=== PATIENT | female | born 1940 | race Caucasian/White ===

== ENCOUNTER 2023-01-13 13:34 | Inpatient (IN) | payer MEDICARE, MEDICAID, SELFPAY ==
[2023-01-13] VITALS (18 sets, daily range): BP systolic 97–155; BP diastolic 64–108; PULSE 52–74; RESP 12–20; TEMP 36.3–36.7; O2SAT 91–97; BMI 31.0; BMI 39.4
--- NOTE | 2023-01-13 13:35 | XR_ITS ---
The [address] [address] Patient Name: JASWINDER COOPER MRN: [id number] date: 1940 Sex: F Assigned Patient Location: ER Current Patient Location: ED.MAIN Accession/Order Number: [id number] Exam Date: 01/13/2023 14:01 Report Date: 01/13/2023 14:20 At the request of: EVERETT CHISHOLM Procedure: XR chest 1V EXAMINATION: XR chest 1V HISTORY: confusion COMPARISON: 10/02/2022 TECHNIQUE: AP erect FINDINGS: LUNGS: Mild right basilar infiltrate partially obscuring the hemidiaphragm. The left lung is clear VASCULATURE: No increased pulmonary vasculature. PLEURA: No pneumothorax. Small right pleural effusion CARDIAC: No cardiomegaly or cardiac silhouette abnormality. MEDIASTINUM: No visible mass or adenopathy. Retrocardiac opacity, a hiatal artery is favored BONES: No fracture or visible bone lesion. OTHER: Negative. XR/XR chest 1V IMPRESSION: Mild right basilar infiltrate and small pleural effusion Electronically authenticated by: NAV CAMACHO Date: 01/13/2023 14:20
--- NOTE | 2023-01-13 13:36 | ECG_ITS ---
The [facility] Test Date: 2023-01-13 Pat Name: JASWINDER COOPER Department: Room: - Gender: Female Ela Teacher: : 1940 Requested By: GABRIELE SOTELO Order Number: [id number] Reading MD: GABRIELE SOTELO Measurements Intervals [place] Rate: 61 P: 90 VT: 246 QRS: -48 QRSD: 114 T: 66 QT: 426 QTc: 430 Interpretive Statements 1100 Sinus rhythm 2231 First degree AV block 2440 Incomplete right bundle branch block 2630 Left anterior fascicular block 3113 Cannot rule out anterior myocardial infarction, probably old 9150 abnormal ECG No previous ECG available for comparison Electronically Signed On 01-15-2023 6:36:45 EDT by GABRIELE SOTELO
--- NOTE | 2023-01-13 13:38 | CT_ITS ---
[address] [address] Patient Name: JASWINDER COOPER MRN: [id number] date: 1940 Sex: F Assigned Patient Location: ER Current Patient Location: ED.MAIN Accession/Order Number: [id number] Exam Date: 01/13/2023 13:30 Report Date: 01/13/2023 14:07 At the request of: EVERETT CHISHOLM Procedure: CT stroke head/brain wo con EXAMINATION: CT stroke head/brain wo con REASON FOR EXAM: confusion COMPARISON: No comparison. FINDINGS: Moderate cerebral atrophy. No intracranial hemorrhage, mass or cortical edema. There is atherosclerotic calcification of the vertebrobasilar system and the paraclinoid internal carotid arteries. There are air-fluid levels in the maxillary sinuses and mucosal thickening throughout the ethmoid air cells and sphenoid air cells suggesting sinusitis. No fluid middle ear cavities or mastoids. No skull fracture. CT/CT stroke head/brain wo con IMPRESSION: 1. There is cerebral atrophy but no intracranial hemorrhage or mass. 2. Sinusitis with air-fluid levels in the maxillary sinuses. Electronically authenticated by: DANN ALBRECHT Date: 01/13/2023 14:07
--- NOTE | 2023-01-13 13:43 | ED_ITS ---
HPI - Altered Mental Status General Chief Complaint: Altered Mental Status Stated Complaint: general weakness Time Seen by Provider: 01/13/23 13:35 History of Present Illness HPI narrative: patient is an 82-year-old female who presents to the emergency department from the [facility] where she is currently residing for the evaluation of confusion today associated with low blood pressure. On arrival to the Emergency Room, patient states she has had some pain in her low back for several months but has no new focal medical complaints today. Her assist with the history states that several months ago the patient was up at [facility] and on a ventilator and has been having issues with her low back since that time. She denies any pain at rest or when she is lying down. She denies chest pain, shortness of breath. [facility] report stated that the patient had a blood p ressure of 80/40 this morning, EMS reports a normal blood pressure. She has not had any falls or injuries. [facility] report states that they contacted Dr. Villa who was going to adjust the patient's blood pressure medication but when nursing asked for lab studies and Dr. Villa requested the patient come to the emergency department. Related Data Home Medications Medication Instructions Recorded Confirmed amiodarone 200 mg tablet 200 mg PO Q24H 01/13/23 01/13/23 apixaban 5 mg tablet (Eliquis) 5 mg PO Q12H 01/13/23 01/13/23 aripiprazole 2 mg tablet 1 mg PO DAILY 01/13/23 01/13/23 citalopram 20 mg tablet 20 mg PO DAILY 01/13/23 01/13/23 famotidine 20 mg tablet 20 mg PO DAILY 01/13/23 01/13/23 insulin lispro 100 unit/mL 1 sliding scale dose subcut 01/13/23 01/13/23 subcutaneous pen ([facility]-100 Insulin lispro) losartan 50 mg tablet 50 mg PO DAILY 01/13/23 01/13/23 metoprolol tartrate 25 mg tablet 25 mg PO Q12H 01/13/23 01/13/23 potassium, sodium phosphates 280 1 packet PO BID 01/13/23 01/13/23 mg-160 mg-250 mg oral powder packet (Phosphorous Supplement) silodosin 4 mg capsule 4 mg PO DAILY 01/13/23 01/13/23 sodium chloride 234 mg/mL (4 1,000 mg PO TID 01/13/23 01/13/23 mEq/mL) oral solution Allergies Allergy/AdvReac Type Severity Reaction Status Date / Time amoxicillin Allergy Intermediate Verified 01/13/23 14:08 azithromycin Allergy Intermediate Verified 01/13/23 14:09 betamethasone Allergy Intermediate Verified 01/13/23 14:08 codeine Allergy Intermediate Verified 01/13/23 14:08 Corticosteroids Allergy Intermediate Verified 01/13/23 14:08 (Glucocorticoids) Iodinated Contrast Media Allergy Intermediate Verified 01/13/23 14:08 metformin [From Glucophage] Allergy Intermediate Verified 01/13/23 14:08 Penicillins Allergy Intermediate Verified 01/13/23 14:08 pioglitazone [From Actos] Allergy Intermediate Verified 01/13/23 14:08 simvastatin [From Zocor] Allergy Intermediate Verified 01/13/23 14:08 temazepam [From Restoril] Allergy Intermediate Verified 01/13/23 14:08 Review of Systems ROS Constitutional Denies: fever or chills Ears, nose, mouth, and throat Denies: throat pain or neck pain Respiratory Denies: shortness of breath or cough Gastrointestinal Denies: nausea or vomiting Genitourinary Denies: painful urination Musculoskeletal Reports: back pain; Denies: neck pain Integumentary/Breast Denies: rash Neurological Denies: headache Endocrine Denies: excessive urination Hematologic/Lymphatic Reports: [facility] Social History Smoking status: Former smoker Exam Narrative Exam Narrative: Gen.: Awake, alert, in no distress Head: Normocephalic, atraumatic ENT: Moist mucous membranes Respiratory: No respiratory distress, lungs clear bilaterally Cardio: Regular rate and rhythm Gastrointestinal: Abdomen is soft, nondistended and nontender to palpation Extremities: Moves extremities equally, no injuries noted Psych: clear speech, alert and oriented to person, place, contacts, month. Disoriented to year Neuro: No focal neuro deficit Skin: Warm, dry, intact Constitutional Vital Signs, click to edit/add: Last Vital Signs Temp 98.1 F 01/13/23 13:53 Pulse 61 01/13/23 15:30 Resp 12 01/13/23 15:30 BP 128/84 H 01/13/23 15:30 Pulse Ox 95 01/13/23 15:30 O2 Del Method Room Air 01/13/23 14:01 Course Vital Signs Vital signs: Vital Signs Pulse Rate 62 01/13/23 13:45 Respiratory Rate 18 01/13/23 13:45 Pulse Oximetry 95 01/13/23 13:45 Temperature 98.1 F 01/13/23 13:53 Pulse Rate 61 01/13/23 15:30 Respiratory Rate 12 01/13/23 15:30 Blood Pressure 128/84 H 01/13/23 15:30 Pulse Oximetry 95 01/13/23 15:30 Oxygen Delivery Method Room Air 01/13/23 14:01 MDM - Altered Mental Status MDM Narrative Medical decision making narrative: patient treated with IV fluids, she maintains normal vital signs in the Emergen cy Room. patient was immediately sent for a stroke head CT because of her confusion, this is unremarkable, chest x-ray shows right lower lobe infiltraate and the patient was treated with IV Levaquin. Her thyroid-stimulating hormone was noted to be abnormal and additional thyroid studies were ordered for her. She did not require anything for pain in the Emergency Room. She is noted to have acute kidney injury with an elevated creatinine compared to previous. She will be admitted for IV fluids, treatment of pneumonia due to confusion and hypotension earlier today. Stable at time of admission to Dr. Villa. Medical Records Attestation: I reviewed the patient's medical records. Lab Data Attestation: I reviewed the patient's lab results. Labs: Lab Results 01/13/23 01/13/23 Range/Units 13:49 13:54 WBC 9.4 (4.0-11.0) 10^3/uL RBC 2.76 L (4.20-5.40) 10^6/uL Hgb 9.7 L (12.0-16.0) g/dL Hct 28.8 L (36.0-48.0) % MCV 104.3 H (81.0-99.0) fL MCH 35.1 H (26.7-34.0) pg MCHC 33.7 (29.9-35.2) g/dL RDW 17.2 H (11.0-15.0) % Plt Count 149 L (150-450) 10^3/uL MPV 9.0 L (9.5-13.5) fL Seg Neuts % (Manual) 21.0 Lymphocytes % (Manual) 70.0 H (20.5-60.0) % Atypical Lymphs % (Man) 7.0 % Monocytes % (Manual) 2.0 (1.7-12.0) % Eosinophils % (Manual) 0.0 L (0.9-7.0) % Basophils % (Manual) 0.0 L (0.2-2.0) % Neutrophils # (Manual) 1.97 (1.4-6.5) 10^3/uL Lymphocytes # (Manual) 6.58 H (1.20-3.80) 10^3/uL Monocytes # (Manual) 0.18 L (0.30-0.80) 10^3/uL Eosinophils # (Manual) 0.00 (0.00-0.70) 10^3/uL Basophils # (Manual) 0.00 (0.00-0.10) 10^3/uL Anisocytosis 2+ PT 10.9 (9.0-11.6) sec INR 1.03 Sodium 134 L (136-145) mmol/L Potassium 4.2 (3.5-5.1) mmol/L Chloride 99 (98-107) mmol/L Carbon Dioxide 25.7 (21.0-32.0) mmol/L Anion Gap 13.5 BUN 33.0 H (7.0-18.0) mg/dL Creatinine 2.01 H (0.55-1.02) mg/dL Est GFR ( Amer) 29 L (>=60) Est GFR (Non-Af Amer) 24 L (>=60) BUN/Creatinine Ratio 16.4 Glucose 123 H (74-106) mg/dL Lactate 1.3 (0.4-2.0) mmol/L Calcium 8.5 (8.5-10.1) mg/dL Total Bilirubin 0.4 (0.2-1.0) mg/dL AST 38 H (15-37) U/L ALT 32 (14-59) U/L Alkaline Phosphatase 64 (46-116) U/L Troponin I High Sens 11.9 (4.0-51.3) pg/mL Total Protein 6.6 (6.4-8.2) g/dL Albumin 3.4 (3.4-5.0) g/dL Globulin 3.2 g/dL Albumin/Globulin Ratio 1.1 TSH 98.540 H (0.358-3.740) uIU/mL POC Glucose 124 H (74-106) mg/dL Imaging Data Chest x-ray: Attestation: I have reviewed the pertinent imaging results. Radiologist's impression: Procedure: XR chest 1V EXAMINATION: XR chest 1V HISTORY: confusion COMPARISON: 10/02/2022 TECHNIQUE: AP erect FINDINGS: LUNGS: Mild right basilar infiltrate partially obscuring the hemidiaphragm. The left lung is clear VASCULATURE: No increased pulmonary vasculature. PLEURA: No pneumothorax. Small right pleural effusion CARDIAC: No cardiomegaly or cardiac silhouette abnormality. MEDIASTINUM: No visible mass or adenopathy. Retrocardiac opacity, a hiatal artery is favored BONES: No fracture or visible bone lesion. OTHER: Negative. IMPRESSION: Mild right basilar infiltrate and small pleural effusion Electronically authenticated by: NAV CAMACHO Date: 01/13/2023 14:20 CT scan - head: Attestation: I have reviewed the pertinent imaging results. Radiologist's impression: Procedure: CT stroke head/brain wo con EXAMINATION: CT stroke head/brain wo con REASON FOR EXAM: confusion COMPARISON: No comparison. FINDINGS: Moderate cerebral atrophy. No intracranial hemorrhage, mass or cortical edema. There is atherosclerotic calcification of the vertebrobasilar system and the paraclinoid internal carotid arteries. There are air-fluid levels in the maxillary sinuses and mucosal thickening throughout the ethmoid air cells and sphenoid air cells suggesting sinusitis. No fluid middle ear cavities or mastoids. No skull fracture. IMPRESSION: 1. There is cerebral atrophy but no intracranial hemorrhage or mass. 2. Sinusitis with air-fluid levels in the maxillary sinuses. Electronically authenticated by: DANN ALBRECHT Date: 01/13/2023 14:07 ECG Data Attestation: I personally reviewed and interpreted this ECG as follows: (normal sinus rhythm at a rate of sixty-one, first-degree AV block with no acute ST elevation or ectopy. EKG reviewed by attending physician) ECG interpretation date: 01/13/23 ECG interpretation time: 13:54 Discharge Plan Discharge Chief Complaint: Altered Mental Status Clinical Impression: Acute kidney injury, Acute hypotension, Elevated TSH, Altered mental status, Right lower lobe pneumonia Patient Disposition: Admitted as Observation Time of Disposition Decision: 15:37 Condition: Good
[2023-01-13 13:51] LABS: Glucometer 124 mg/dL (74-106)
[2023-01-13 14:11] LABS: Hematocrit 28.8 % (36.0-48.0); Hemoglobin 9.7 g/dL (12.0-16.0); Mean Corpuscular HGB Conc 33.7 g/dL (29.9-35.2); Mean Corpuscular Hemoglobin 35.1 pg (26.7-34.0); Mean Corpuscular Volume 104.3 fL (81.0-99.0); Platelet Count 149 10^3/uL (150-450); Red Blood Count 2.76 10^6/uL (4.20-5.40); Red Cell Distribution Width 17.2 % (11.0-15.0); White Blood Count 9.4 10^3/uL (4.0-11.0)
[2023-01-13 14:28] LABS: Lymphocytes Absolute Manual 6.58 10^3/uL (1.20-3.80); Monocytes Absolute Manual 0.18 10^3/uL (0.30-0.80); Segmented Neut Absolute Manual 1.97 10^3/uL (1.4-6.5)
[2023-01-13 14:29] LABS: Anisocytosis 2+; INR 1.03; Prothrombin Time 10.9 sec (9.0-11.6)
[2023-01-13 14:32] LABS: Lactate/Lactic Acid 1.3 mmol/L (0.4-2.0)
[2023-01-13] MEDS: 0.9 % SODIUM CHLORIDE 1,000 ML 1000 ML IV (14:37)
[2023-01-13 14:39] LABS: Alanine Aminotransferase 32 U/L (14-59); Albumin Globulin Ratio 1.1; Albumin Level 3.4 g/dL (3.4-5.0); Alkaline Phosphatase 64 U/L (46-116); Anion Gap 13.5; Aspartate Amino Transferase 38 U/L (15-37); BUN Creatinine Ratio 16.4; Bilirubin Total 0.4 mg/dL (0.2-1.0); Calcium 8.5 mg/dL (8.5-10.1); Carbon Dioxide 25.7 mmol/L (21.0-32.0); Chloride 99 mmol/L (98-107); Estimated GFR (African America 29 (>=60); Estimated GFR (Non-African Ame 24 (>=60); Globulin 3.2 g/dL; Glucose 123 mg/dL (74-106); Potassium 4.2 mmol/L (3.5-5.1); Sodium 134 mmol/L (136-145); Total Protein 6.6 g/dL (6.4-8.2); Troponin I High Sensitivity 11.9 pg/mL (4.0-51.3)
[2023-01-13] MEDS: LEVOFLOXACIN IN DEXTROSE 5 % 750 MG/150 ML IV.SOLN 100 MG IV (15:37)
[2023-01-13 15:57] LABS: Free T4 0.14 ng/dL (0.76-1.46)
[2023-01-13 16:03] LABS: Free T3 <0.50 pg/mL (2.18-3.98)
--- NOTE | 2023-01-13 16:21 | SWNOTE1 ---
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
[2023-01-13 17:14] LABS: Glucometer 89 mg/dL (74-106)
[2023-01-13 18:04] LABS: Bilirubin Urine NEGATIVE (NEGATIVE); Blood Urine SMALL (NEGATIVE); Clarity Urine CLEAR (CLEAR); Color Urine LT. YELLOW (YELLOW); Glucose Urine UA NEGATIVE (NEGATIVE); Ketones Urine NEGATIVE (NEGATIVE); Leukocyte Esterase Urine SMALL (NEGATIVE); Nitrite Urine NEGATIVE (NEGATIVE); Protein Urine NEGATIVE (NEG/TRACE); Urobilinogen Urine 0.2 EU/dL (0.2-1.0)
[2023-01-13 18:07] LABS: Urine Microscopic Indicated YES
[2023-01-13 18:10] LABS: Bacteria Urine TRACE #/HPF (NONE SEEN); Mucus Urine NONE SEEN (NONE SEEN); Squamous Epithelial Cell Urine NONE SEEN #/LPF (NONE/RARE)
[2023-01-13 18:11] LABS: Cast Seen? NONE SEEN #/LPF (NONE SEEN); Crystals Seen? None Seen #/HPF (None Seen); Urine Culture Indicated YES
[2023-01-13 20:13] LABS: Glucometer 127 mg/dL (74-106)
[2023-01-13] MEDS: APIXABAN 5 MG TABLET PO (20:56)
[2023-01-13] MEDS: METOPROLOL TARTRATE 25 MG TABLET PO (20:56)
[2023-01-13] MEDS: LACTATED RINGER'S SOLUTION 1,000 ML 100 ML IV (21:16)
[2023-01-13] MEDS: SODIUM CHLORIDE 1,000 MG TABLET 1000 MG PO (21:18)
[2023-01-14] VITALS (18 sets, daily range): BP systolic 117–138; BP diastolic 67–75; PULSE 49–67; RESP 16–18; TEMP 36.7–37; O2SAT 90–95
[2023-01-14 05:20] LABS: Hematocrit 27.2 % (36.0-48.0); Hemoglobin 9.1 g/dL (12.0-16.0); Mean Corpuscular HGB Conc 33.5 g/dL (29.9-35.2); Mean Corpuscular Hemoglobin 34.7 pg (26.7-34.0); Mean Corpuscular Volume 103.8 fL (81.0-99.0); Mean Platelet Volume 9.3 fL (9.5-13.5); Platelet Count 136 10^3/uL (150-450); Red Blood Count 2.62 10^6/uL (4.20-5.40); Red Cell Distribution Width 16.9 % (11.0-15.0); White Blood Count 9.2 10^3/uL (4.0-11.0)
[2023-01-14 05:38] LABS: Alanine Aminotransferase 30 U/L (14-59); Albumin Level 2.9 g/dL (3.4-5.0); Alkaline Phosphatase 54 U/L (46-116); Anion Gap 11.3; Aspartate Amino Transferase 29 U/L (15-37); BUN Creatinine Ratio 15.2; Bilirubin Total 0.4 mg/dL (0.2-1.0); Calcium 8.2 mg/dL (8.5-10.1); Carbon Dioxide 26.6 mmol/L (21.0-32.0); Chloride 100 mmol/L (98-107); Estimated GFR (African America 36 (>=60); Estimated GFR (Non-African Ame 30 (>=60); Glucose 107 mg/dL (74-106); Potassium 3.9 mmol/L (3.5-5.1); Sodium 134 mmol/L (136-145); Total Protein 5.9 g/dL (6.4-8.2)
[2023-01-14] MEDS: SODIUM CHLORIDE 1,000 MG TABLET 1000 MG PO ×3 (05:50→21:27)
[2023-01-14 06:13] LABS: Hypochromasia 3+; Lymphocytes Absolute Manual 7.45 10^3/uL (1.20-3.80); Segmented Neut Absolute Manual 1.74 10^3/uL (1.4-6.5)
[2023-01-14] MEDS: LACTATED RINGER'S SOLUTION 1,000 ML 100 ML IV ×2 (06:50→18:54)
--- NOTE | 2023-01-14 08:19 | P.HP_ITS ---
H&P: HPI History of Present Illness Chief complaint: general weakness ACUTE KIDNEY INJURY R LOWER LOBE Narrative: I received a call from the skilled nursing, patient with change in mental status, not as alert, referred out to the emergency room. Found to have acute altered mental status secondary to acute UTI-patient with a history of sepsis. She will be admitted for IV antibiotics and continued work-up. Review of Systems ROS Constitutional Denies: fever or chills Eyes Denies: change in vision Ears, nose, mouth, and throat Denies: throat pain Cardiovascular Denies: chest pain or palpitations Respiratory Denies: shortness of breath Gastrointestinal Denies: abdominal pain PFSH PFSH Social History Smoking status: Former smoker Meds Home Medications and Allergies Home Medications Medication Instructions Recorded Confirmed Type amiodarone 200 mg tablet 200 mg PO Q24H 01/13/23 01/13/23 History apixaban 5 mg tablet (Eliquis) 5 mg PO Q12H 01/13/23 01/13/23 History aripiprazole 2 mg tablet 1 mg PO DAILY 01/13/23 01/13/23 History citalopram 20 mg tablet 20 mg PO DAILY 01/13/23 01/13/23 History famotidine 20 mg tablet 20 mg PO DAILY 01/13/23 01/13/23 History insulin lispro 100 unit/mL 1 sliding scale dose subcut 01/13/23 01/13/23 History subcutaneous pen ([facility]-100 Insulin lispro) losartan 50 mg tablet 50 mg PO DAILY 01/13/23 01/13/23 History metoprolol tartrate 25 mg tablet 25 mg PO Q12H 01/13/23 01/13/23 History potassium, sodium phosphates 280 1 packet PO BID 01/13/23 01/13/23 History mg-160 mg-250 mg oral powder packet (Phosphorous Supplement) silodosin 4 mg capsule 4 mg PO DAILY 01/13/23 01/13/23 History sodium chloride 234 mg/mL (4 1,000 mg PO TID 01/13/23 01/13/23 History mEq/mL) oral solution Allergies Allergy/AdvReac Type Severity Reaction Status Date / Time amoxicillin Allergy Intermediate Verified 01/13/23 14:08 azithromycin Allergy Intermediate Verified 01/13/23 14:09 betamethasone Allergy Intermediate Verified 01/13/23 14:08 codeine Allergy Intermediate Verified 01/13/23 14:08 Corticosteroids Allergy Intermediate Verified 01/13/23 14:08 (Glucocorticoids) Iodinated Contrast Media Allergy Intermediate Verified 01/13/23 14:08 metformin [From Glucophage] Allergy Intermediate Verified 01/13/23 14:08 Penicillins Allergy Intermediate Verified 01/13/23 14:08 pioglitazone [From Actos] Allergy Intermediate Verified 01/13/23 14:08 simvastatin [From Zocor] Allergy Intermediate Verified 01/13/23 14:08 temazepam [From Restoril] Allergy Intermediate Verified 01/13/23 14:08 Exam Constitutional Vital Signs, click to edit/add: Last Vital Signs Temp 98.1 F 01/14/23 05:54 Pulse 61 01/14/23 07:50 Resp 18 01/14/23 05:54 BP 125/70 H 01/14/23 05:54 Pulse Ox 92 L 01/14/23 05:54 O2 Del Method Room Air 01/14/23 05:54 Documenting provider has reviewed patient's vital signs: yes Exam limitations: altered mental status and behavioral limitations HENMT Common normals: normocephalic Chest Common normals: inspection of chest normal Respiratory Common normals: normal respiratory effort, no retractions and clear to auscultation bilaterally Cardio Common normals: regular rate, regular rhythm and no murmurs GI Common normals: Normal to inspection, nondistended, normoactive bowel sounds present, soft to palpation, non-tender and no masses Psych Common normals: negative for mental status grossly normal and negative for thought process normal Attitude: agitated Results Labs Labs: Short CBC 01/13/23 01/14/23 Range/Units 13:54 05:00 WBC 9.4 9.2 (4.0-11.0) 10^3/uL Hgb 9.7 L 9.1 L (12.0-16.0) g/dL Hct 28.8 L 27.2 L (36.0-48.0) % Plt Count 149 L 136 L (150-450) 10^3/uL BMP 01/13/23 01/14/23 13:54 05:00 Sodium 134 L 134 L Potassium 4.2 3.9 Chloride 99 100 Carbon Dioxide 25.7 26.6 BUN 33.0 H 25.0 H Creatinine 2.01 H 1.64 H Glucose 123 H 107 H Calcium 8.5 8.2 L Liver Function 01/13/23 01/14/23 Range/Units 13:54 05:00 Total Bilirubin 0.4 0.4 (0.2-1.0) mg/dL AST 38 H 29 (15-37) U/L ALT 32 30 (14-59) U/L Alkaline Phosphatase 64 54 (46-116) U/L Albumin 3.4 2.9 L (3.4-5.0) g/dL Urine 01/13/23 Range/Units 17:35 Urine Color Lt. yellow (YELLOW) Urine Clarity Clear (CLEAR) Urine pH 6.0 (5.0-9.0) Ur Specific [place] 1.020 (1.005-1.025) Urine Protein Negative (NEG/TRACE) mg/dL Urine Glucose (UA) Negative (NEGATIVE) mg/dL Assessment and Plan Assessment and Plan (1) Acute kidney injury: (2) Acute hypotension: (3) Elevated TSH: (4) Right lower lobe pneumonia: (5) Altered mental status: (6) Acute UTI: Plan Acute altered mental status, increasing weakness, thrombocytopenia, acute kidney injury secondary to acute UTI. IV antibiotics. Blood cultures and urine cultures are pending. He did maintain IV fluids for at least 1 additional day. Her BUN and creatinine are not back to her baseline of around 1. Is improved from her admission creatinine of 2. Severe hypothyroidism-this is complicating the above. Give 1 dose of IV thyroid today. In the start p.o.Synthroid tomorrow start Cytomel orally today. T3 and T4 are both severely low. Iron deficiency anemia-monitor daily. We will check occult blood as well. 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 Hypertension-continue with the medications, adjust as necessary Unable to improve over the first 24 hours. Her creatinine is still elevated from her baseline. She still has persistent altered mental status.Will need to be changed to inpatient status for continued medical therapyNext 24 to 48 hours.
[2023-01-14] MEDS: LIOTHYRONINE SODIUM 5 MCG TABLET 10 MCG PO (10:27)
[2023-01-14] MEDS: APIXABAN 5 MG TABLET PO ×2 (10:28→21:27)
[2023-01-14] MEDS: LOSARTAN POTASSIUM 50 MG TABLET PO (10:28)
[2023-01-14] MEDS: METOPROLOL TARTRATE 25 MG TABLET PO ×2 (10:29→21:27)
[2023-01-14] MEDS: FAMOTIDINE 20 MG TABLET PO (10:29)
[2023-01-14] MEDS: PANTOPRAZOLE SODIUM 40 MG VIAL IV (10:30)
[2023-01-14] MEDS: AMIODARONE HCL 200 MG TABLET PO (10:33)
[2023-01-14] MEDS: ESCITALOPRAM 10 MG TABLET PO (10:34)
[2023-01-14] MEDS: LEVOTHYROXINE SODIUM 100 MCG VIAL IVP (11:04)
[2023-01-14 11:14] LABS: Glucometer 141 mg/dL (74-106)
--- NOTE | 2023-01-14 14:51 | CM.NOTE ---
Important Message From Medicare discussed with pt, pt verbalizes understanding and signs paper. Origianl given to pt and copy placed on pt's chart.
[2023-01-14 16:23] LABS: Glucometer 157 mg/dL (74-106)
--- NOTE | 2023-01-14 16:29 | SWNOTE1 ---
SW attempted to see pt, but she was sleeping. SW to assess tomorrow.
[2023-01-14] MEDS: INSULIN ASPART 300 UNIT/3 ML PEN SUBQ (17:56)
[2023-01-14 19:45] LABS: Glucometer 103 mg/dL (74-106)
[2023-01-15] VITALS (8 sets, daily range): BP systolic 136; BP diastolic 74; PULSE 50–60; RESP 16; TEMP 36.1; O2SAT 92–96
[2023-01-15] MEDS: LACTATED RINGER'S SOLUTION 1,000 ML 100 ML IV (04:06)
[2023-01-15 04:46] LABS: Basophils Percent Auto 0.2 % (0.2-2.0); Eosinophils Percent Auto 0.3 % (0.9-7.0); Hemoglobin 9.2 g/dL (12.0-16.0); Immature Granulocytes Abs Auto 0.01 10^3/uL (0.00-0.03); Immature Granulocytes Pct Auto 0.1 % (0.0-0.5); Lymphocytes Absolute Auto 7.2 10^3/uL (1.2-3.8); Lymphocytes Percent Auto 80.7 % (20.5-60.0); Mean Corpuscular HGB Conc 34.1 g/dL (29.9-35.2); Mean Corpuscular Hemoglobin 35.4 pg (26.7-34.0); Mean Corpuscular Volume 103.8 fL (81.0-99.0); Mean Platelet Volume 9.2 fL (9.5-13.5); Monocytes Absolute Auto 0.6 10^3/uL (0.3-0.8); Monocytes Percent Auto 6.1 % (1.7-12.0); Neutrophils Absolute Auto 1.1 10^3/uL (1.4-6.5); Neutrophils Percent Auto 12.6 % (43.0-75.0); Platelet Count 133 10^3/uL (150-450); Red Cell Distribution Width 16.6 % (11.0-15.0)
[2023-01-15] MEDS: SODIUM CHLORIDE 1,000 MG TABLET 1000 MG PO (05:12)
[2023-01-15 05:38] LABS: Alanine Aminotransferase 26 U/L (14-59); Albumin Globulin Ratio 1.2; Albumin Level 2.9 g/dL (3.4-5.0); Alkaline Phosphatase 55 U/L (46-116); Anion Gap 8.8; Aspartate Amino Transferase 33 U/L (15-37); BUN Creatinine Ratio 12.8; Bilirubin Total 0.4 mg/dL (0.2-1.0); Calcium 8.2 mg/dL (8.5-10.1); Chloride 99 mmol/L (98-107); Estimated GFR (African America 41 (>=60); Estimated GFR (Non-African Ame 34 (>=60); Globulin 2.4 g/dL; Glucose 93 mg/dL (74-106); Potassium 3.8 mmol/L (3.5-5.1); Sodium 132 mmol/L (136-145); Total Protein 5.3 g/dL (6.4-8.2)
[2023-01-15 07:51] LABS: Glucometer 135 mg/dL (74-106)
--- NOTE | 2023-01-15 08:12 | P.DS_ITS ---
DS: Providers Provider Date of admission: 01/14/23 08:49 Primary care physician: James Villa MD Consults: 01/13/23 18:57 Occupational Therapy Eval and Treat Routine Physical Therapy Eval and Treat Routine 01/14/23 08:15 Consult to Clinical Application Specialist Routine Reason for consult:: longterm DS: Diagnosis Discharge Diagnosis (1) Acute kidney injury: (2) Acute hypotension: (3) Elevated TSH: (4) Right lower lobe pneumonia: (5) Altered mental status: (6) Acute UTI: Plan Acute altered mental status, increasing weakness, thrombocytopenia, acute kidney injury secondary to acute UTI.? Severe hypothyroidism-this is complicating the above.? Iron deficiency anemia- Mild depression- Coronary artery disease- Hypertension DS: Summary Hospital Course Hospital Course: Patient was seen and evaluated in the emergency room after recommendation from me to have her transferred from the assisted to the ER for the evaluation. In ER found to have acute UTI with altered mental status. Patient was admitted, placed on IV fluids and IV antibiotics. No significant improvement the following day. Still with altered mental status. Continue to medical evaluation and therapies from yesterday to today. Patient is much better today. She is more alert. Oriented. At this point she feels like she wants to go back to the assisted. Discussed with family. Medications see list. I will follow patient in assisted Status at Discharge Functional status at discharge: wheelchair bound Overall status at discharge: patient is back to baseline Time Spent with Patient Time attestation: Total time spent providing and/or coordinating discharge services: Quality: Stroke Symptom Onset Unknown: No Exam Constitutional Vital Signs, click to edit/add: Last Vital Signs Temp 97.0 F L 01/15/23 04:11 Pulse 59 L 01/15/23 08:05 Resp 16 01/15/23 04:11 BP 136/74 H 01/15/23 04:11 Pulse Ox 96 01/15/23 04:11 O2 Del Method Room Air 01/15/23 04:11 Documenting provider has reviewed patient's vital signs: yes Common normals: no apparent distress Chest Common normals: inspection of chest normal Respiratory Common normals: normal respiratory effort, no retractions and clear to auscultation bilaterally Cardio Common normals: regular rate, regular rhythm and no murmurs GI Common normals: Normal to inspection, nondistended, normoactive bowel sounds present and non-tender DS: Data Data Completed and Pending Labs on day of discharge: Labs from last 24 hours 01/15/23 01/15/23 01/14/23 07:50 04:30 19:43 WBC 9.0 RBC 2.60 L Hgb 9.2 L Hct 27.0 L MCV 103.8 H MCH 35.4 H MCHC 34.1 RDW 16.6 H Plt Count 133 L MPV 9.2 L Neut % (Auto) 12.6 L Lymph % (Auto) 80.7 H [place] % (Auto) 6.1 Eos % (Auto) 0.3 L Baso % (Auto) 0.2 Neut # (Auto) 1.1 L Lymph # (Auto) 7.2 H [place] # (Auto) 0.6 Eos # (Auto) 0.0 Baso # (Auto) 0.0 Abs Immat Gran (auto) 0.01 Imm/Tot Granulo (auto) 0.1 Sodium 132 L Potassium 3.8 Chloride 99 Carbon Dioxide 28.0 Anion Gap 8.8 BUN 19.0 H Creatinine 1.48 H Est GFR ( Amer) 41 L Est GFR (Non-Af Amer) 34 L BUN/Creatinine Ratio 12.8 Glucose 93 Calcium 8.2 L Total Bilirubin 0.4 AST 33 ALT 26 Alkaline Phosphatase 55 Total Protein 5.3 L Albumin 2.9 L Globulin 2.4 Albumin/Globulin Ratio 1.2 POC Glucose 135 H 103 01/14/23 01/14/23 16:22 11:13 WBC RBC Hgb Hct MCV MCH MCHC RDW Plt Count MPV Neut % (Auto) Lymph % (Auto) [place] % (Auto) Eos % (Auto) Baso % (Auto) Neut # (Auto) Lymph # (Auto) [place] # (Auto) Eos # (Auto) Baso # (Auto) Abs Immat Gran (auto) Imm/Tot Granulo (auto) Sodium Potassium Chloride Carbon Dioxide Anion Gap BUN Creatinine Est GFR ( Amer) Est GFR (Non-Af Amer) BUN/Creatinine Ratio Glucose Calcium Total Bilirubin AST ALT Alkaline Phosphatase Total Protein Albumin Globulin Albumin/Globulin Ratio POC Glucose 157 H 141 H Discharge Plan Discharge Disposition: Xfer SNF Condition: Good Discharge Medications: New liothyronine 5 mcg Tablet 10 mcg PO DAILY Qty: 30 11RF acetaminophen [Tylenol Extra Strength] 500 mg Tablet 1,000 mg PO Q6H PRN (Reason: Pain Scale 4-6) Qty: 100 0RF levothyroxine 100 mcg Tablet 100 mcg PO ACB Qty: 30 11RF levofloxacin 500 mg tablet 500 mg PO Q24H 10 Days Qty: 10 0RF Continued amiodarone 200 mg tablet 200 mg PO Q24H citalopram 20 mg tablet 20 mg PO DAILY famotidine 20 mg tablet 20 mg PO DAILY losartan 50 mg tablet 50 mg PO DAILY silodosin 4 mg capsule 4 mg PO DAILY Eliquis 5 mg tablet 5 mg PO Q12H potassium, sodium phosphates [Phosphorous Supplement] 280-160-250 mg powder in packet 1 packet PO BID sodium chloride 234 mg/mL (4 mEq/mL) solution 1,000 mg PO TID insulin lispro [Admelog SoloStar U-100 Insulin] 100 unit/mL insulin pen 1 sliding scale dose subcut USEASDIRECTD Discontinued aripiprazole 2 mg tablet 1 mg PO DAILY metoprolol tartrate 25 mg tablet 25 mg PO Q12H Forms: Portal Instructions
[2023-01-15] MEDS: APIXABAN 5 MG TABLET PO (09:32)
[2023-01-15] MEDS: PANTOPRAZOLE SODIUM 40 MG VIAL IV (09:32)
[2023-01-15] MEDS: AMIODARONE HCL 200 MG TABLET PO (09:32)
[2023-01-15] MEDS: LEVOTHYROXINE SODIUM 100 MCG TABLET PO (09:32)
[2023-01-15] MEDS: LIOTHYRONINE SODIUM 5 MCG TABLET 10 MCG PO (09:32)
[2023-01-15] MEDS: METOPROLOL TARTRATE 25 MG TABLET 12.5 MG PO (09:32)
[2023-01-15] MEDS: FAMOTIDINE 20 MG TABLET PO (09:32)
[2023-01-15] MEDS: LOSARTAN POTASSIUM 50 MG TABLET PO (09:32)
[2023-01-15] MEDS: ESCITALOPRAM 10 MG TABLET PO (09:32)
--- NOTE | 2023-01-15 10:25 | SWNOTE1 ---
SONA was able to speak with pt's as he was walking out. Pt is at [facility] manager long term care. He did state they are working on getting her to the [facility]. He went over yesterday to speak with Kranthi at [facility] and she put pt on the wait list. This may take up to a year is what Kranthi told him. Pt's asked SONA to call over to [facility] to make sure pt is on wait list, SONA to do this. Pt's voiced understanding that pt is returning to [facility] today. No questions or concerns. SONA to set up transport.
[2023-01-15 11:08] LABS: Glucometer 146 mg/dL (74-106)
[2023-01-15] MEDS: INSULIN ASPART 300 UNIT/3 ML PEN SUBQ (11:30)
--- NOTE | 2023-01-15 12:02 | SWNOTE1 ---
SW set up [facility] stretcher transport for 12:30. 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 SW notified nursing, pt's , and [facility] of time. SW updated packet and took to med/surge floor.
--- NOTE | 2023-01-16 11:07 | PC.NURSE ---
01-16-23 [id number] faxed + urine culture to Dr Villa's office at this time.
== END 2023-01-15 12:20 | DRG 689 ==
LOC: ER 15:37 → MS 17:02
PROVIDERS: Physician Assistant; Admitting Provider Family Medicine; Emergency Provider Emergency Medicine; PCP Family Medicine; Visit Provider Family Medicine
DX: N39.0 Urinary tract infection, site not specified (principal); J18.9 Pneumonia, unspecified organism; N17.9 Acute kidney failure, unspecified; I95.9 Hypotension, unspecified; R41.82 Altered mental status, unspecified; Z87.891 Personal history of nicotine dependence; E03.9 Hypothyroidism, unspecified; D50.9 Iron deficiency anemia, unspecified; F32.A Depression, unspecified; I25.10 Atherosclerotic heart disease of native coronary artery without angina pectoris; I10 Essential (primary) hypertension; Z79.01 Long term (current) use of anticoagulants; Z79.4 Long term (current) use of insulin; Z79.899 Other long term (current) drug therapy; Z88.8 Allergy status to other drugs, medicaments and biological substances; Z88.0 Allergy status to penicillin; Z88.1 Allergy status to other antibiotic agents; Z91.041 Radiographic dye allergy status; Z86.19 Personal history of other infectious and parasitic diseases
CPT/HCPCS: 36415; 70450; 71045; 80053; 81003; 81015; 82948; 83605; 84439; 84443; 84481; 84484; 85007; 85025; 85610; 87086; 87186; 93005; 94667; 94761; 96361; 96365; 96366; 96375; 96376; 97161; 97165; 99285; G0328; G0378

== ENCOUNTER 2023-01-31 07:32 | Outpatient (REF) | payer MEDICARE, MEDICAID, SELFPAY ==
[2023-01-31 09:54] LABS: Estimated Average Glucose 148 mg/dL; Glycohemoglobin A1C 6.8 % (4.5-6.2)
== END 2023-01-31 07:33 | disposition home or self-care (01) ==
LOC: LAB 07:32
PROVIDERS: PCP Family Medicine; Visit Provider Family Medicine
DX: E11.42 Type 2 diabetes mellitus with diabetic polyneuropathy (principal)
CPT/HCPCS: 36415; 83036

== ENCOUNTER 2023-02-12 01:59 | Outpatient (REF) | payer MEDICARE, MEDICAID, SELFPAY ==
[2023-02-12 09:18] LABS: Free T3 1.16 pg/mL (2.18-3.98); Thyroid Stimulating Hormone 14.803 uIU/mL (0.358-3.740)
[2023-02-13 04:07] LABS: Triiodothyronine (T3) 65 ng/dL (71-180)
== END 2023-02-12 02:00 | disposition home or self-care (01) ==
LOC: LAB 01:59
PROVIDERS: PCP Family Medicine; Visit Provider Family Medicine
DX: E03.9 Hypothyroidism, unspecified (principal)
CPT/HCPCS: 36415; 84436; 84443; 84480; 84481

== ENCOUNTER 2023-02-14 12:51 | Outpatient (OUT) | payer MEDICARE, MEDICAID, SELFPAY ==
--- NOTE | 2023-02-14 12:53 | FL_ITS ---
[address] [address] Patient Name: JASWINDER COOPER MRN: [id number] date: 1940 Sex: F Assigned Patient Location: [place] Current Patient Location: [place] Accession/Order Number: [id number] Exam Date: 02/14/2023 13:10 Report Date: 02/14/2023 14:19 At the request of: GABRIELE SOTELO Procedure: FL modified barium swallow EXAMINATION: FL modified barium swallow HISTORY: dysphagia COMPARISON: No relevant comparison available. TECHNIQUE: A swallowing evaluation was performed with fluoroscopy in the usual manner. Standard level fluoroscopic mode of operation utilized. The procedure was recorded. Speech pathology was present FINDINGS: ORAL PHASE: Normal deglutition. PHARYNGEAL PHASE: Penetration with thin liquids. ASPIRATION: None. STRUCTURE: Normal. No visible obstruction, stricture, or dilatation. OTHER: Negative. FL/[place] modified barium swallow IMPRESSION: Penetration with thin liquids Electronically authenticated by: NAV CAMACHO Date: 02/14/2023 14:19
== END 2023-02-14 12:52 | disposition home or self-care (01) ==
LOC: FL 12:51
PROVIDERS: PCP Family Medicine; Visit Provider Family Medicine
DX: R13.14 Dysphagia, pharyngoesophageal phase (principal)
CPT/HCPCS: 74230; 92611